=== PATIENT | male | born 1940 | race African-American/Black ===

== ENCOUNTER 2019-08-04 09:41 | Emergency (ER) | payer MEDICARE, MEDICAID ==
[~2019-08-04] VITALS: Ht 177.8 cm; Wt 75.0 kg
[2019-08-04] MEDS ORDERED: SODIUM CHLORIDE 0.9% 500 ML IV ONE (09:48)
[2019-08-04 10:10] VITALS: BP 103/58
== END 2019-08-04 10:20 | disposition left against medical advice (07) ==
LOC: ER 10:18
DX: R41.82 Altered mental status, unspecified (principal); I10 Essential (primary) hypertension; I25.10 Atherosclerotic heart disease of native coronary artery without angina pectoris; E78.00 Pure hypercholesterolemia, unspecified
CPT/HCPCS: 93005; 99284; J7040

== ENCOUNTER 2019-11-03 11:47 | Inpatient (IN) | payer MEDICARE, MEDICAID ==
[~2019-11-03] VITALS: Ht 172.7 cm; Wt 75.9 kg
[2019-11-03 13:13] LABS: HEMATOCRIT. 26.8 % (42.0-52.0); HEMOGLOBIN. 8.8 g/dL (14.0-18.0); MEAN CORPUSCULAR HEMOGLOBIN 27.5 pg (28.0-32.0); MEAN CORPUSCULAR VOLUME 84.3 fL (80.0-94.0); MEAN PLATELET VOLUME 8.3 fl (7.4-10.4); PLATELET 152 x1000/uL (130-400); RED BLOOD CELL COUNT 3.18 mill/uL (4.7-6.1); RED CELL DISTRIBUTION WIDTH 12.9 % (11.6-14.6)
[2019-11-03 13:21] LABS: CHLORIDE 108 mEq/L (98-107)
[2019-11-03 13:52] LABS: PLATELET ESTIMATE NORMAL
[2019-11-03] MEDS ORDERED: ENOXAPARIN 40MG/0.4ML SYR SUBCUT SCH (20:45)
[2019-11-03] MEDS ORDERED: ONDANSETRON HCL 4MG/2ML INJ IV PRN (20:45)
[2019-11-03] MEDS ORDERED: ACETAMINOPHEN 325MG TABLET PO PRN (20:45)
[2019-11-03] MEDS ORDERED: MORPHINE SULFATE 2 MG/ML CPJ (NOT FOR IM USE) IV PRN (20:45)
[2019-11-03] MEDS ORDERED: DIPHENHYDRAMINE 50MG/ML VIAL IV PRN (20:45)
[2019-11-03] MEDS ORDERED: HYDRALAZINE 20MG/ML VIAL IV PRN (20:45)
[2019-11-03] MEDS ORDERED: IPRATROPIUM/ALBUTEROL 0.5-3(2.5)MG/3ML NEB HHN PRN (20:45)
[2019-11-03] MEDS ORDERED: DOCUSATE SODIUM 100MG CAPSULE PO PRN (20:45)
[2019-11-03] MEDS ORDERED: GUAIFENESIN 200MG/10ML SUGAR FREE UDC PO PRN (20:45)
[2019-11-03] MEDS ORDERED: CLONIDINE 0.1MG TABLET PO PRN (20:45)
[2019-11-03] MEDS ORDERED: HYDROCODONE/ACETAMINOPHEN 10/325MG TABLET PO PRN (20:45)
[2019-11-03] MEDS ORDERED: MAGNESIUM/ALUMINUM HYDROXIDE/SIMETHICONE 30ML UDC PO PRN (20:45)
[2019-11-03] MEDS ORDERED: LORAZEPAM 2MG/ML CPJ IV PRN (20:45)
[2019-11-03 21:26] LABS: CLARITY URINE CLEAR (CLEAR); COLOR URINE YELLOW (YELLOW); KETONES URINE NEGATIVE (NEGATIVE); LEUKOCYTE ESTERASE URINE NEGATIVE (NEGATIVE); NITRITE URINE NEGATIVE (NEGATIVE); OCCULT BLOOD URINE NEGATIVE (NEGATIVE); PH URINE 5.5 (4.5-8.0); PROTEIN URINE NEGATIVE (NEGATIVE); SPECIFIC GRAVITY URINE 1.011 (1.005-1.030); UROBILINOGEN URINE 0.2 E.U./dL (0.2-1.0)
[2019-11-03 21:41] LABS: *AMPHETAMINES SCREEN URINE NEGATIVE (NEGATIVE); *BARBITURATES SCREEN URINE NEGATIVE (NEGATIVE); *BENZODIAZEPINES SCREEN URINE NEGATIVE (NEGATIVE); *COCAINE SCREEN URINE NEGATIVE (NEGATIVE); METHADONE URINE SCREEN NEGATIVE (NEGATIVE); OPIATES URINE SCREEN NEGATIVE (NEGATIVE); PHENCYCLIDINE URINE SCREEN NEGATIVE (NEGATIVE)
[2019-11-03 21:42] LABS: CANNABINOID URINE SCREEN NEGATIVE (NEGATIVE)
[2019-11-03 22:00] VITALS: BP_SYST 117; BP_DIAS 23; BP_DIAS 53
[2019-11-03] MEDS: SODIUM CHLORIDE 0.9% INJ 3ML FLUSH IVF SCH (22:29)
[2019-11-04] VITALS: BP 124/46
[2019-11-04 04:00] VITALS: BP 115/36
[2019-11-04 06:13] LABS: CHLORIDE 108 mEq/L (98-107)
[2019-11-04] MEDS: SODIUM CHLORIDE 0.9% INJ 3ML FLUSH IVF SCH (06:21)
[2019-11-04 06:27] LABS: HEMATOCRIT. 28.5 % (42.0-52.0); HEMOGLOBIN. 9.3 g/dL (14.0-18.0); MEAN CORPUSCULAR HEMOGLOBIN 27.5 pg (28.0-32.0); MEAN CORPUSCULAR VOLUME 83.8 fL (80.0-94.0); MEAN PLATELET VOLUME 9.5 fl (7.4-10.4); PLATELET 148 x1000/uL (130-400); RED CELL DISTRIBUTION WIDTH 12.9 % (11.6-14.6)
[2019-11-04 08:00] VITALS: BP 94/55
[2019-11-04 13:11] LABS: PLATELET ESTIMATE NORMAL
[2019-11-04] MEDS ORDERED: ENOXAPARIN 30MG/0.3ML SYR SUBCUT SCH (21:00)
== END 2019-11-04 10:03 | disposition left against medical advice (07) | DRG 73 ==
LOC: ER 11:47 → 5WST 17:05 → EDBEDREQ 17:07 → ENRESERV 20:06
PROVIDERS: ADMIT Internal Medicine; ATTEND Internal Medicine
DX: G90.8 Other disorders of autonomic nervous system (principal); N17.0 Acute kidney failure with tubular necrosis; J98.11 Atelectasis; Z53.29 Procedure and treatment not carried out because of patient's decision for other reasons; I25.10 Atherosclerotic heart disease of native coronary artery without angina pectoris; I10 Essential (primary) hypertension; E78.5 Hyperlipidemia, unspecified; E78.00 Pure hypercholesterolemia, unspecified; I95.9 Hypotension, unspecified; D72.819 Decreased white blood cell count, unspecified; D64.9 Anemia, unspecified; R79.89 Other specified abnormal findings of blood chemistry; S09.90XA Unspecified injury of head, initial encounter; X58.XXXA Exposure to other specified factors, initial encounter; E86.0 Dehydration; Z86.73 Personal history of transient ischemic attack (TIA), and cerebral infarction without residual deficits; Y93.89 Activity, other specified; Y92.89 Other specified places as the place of occurrence of the external cause; Y99.8 Other external cause status
CPT/HCPCS: 36415; 71045; 80053; 80305; 81003; 83880; 84484; 85025; 93005; 93970; 99285

== ENCOUNTER 2024-08-14 20:50 | Emergency (ER) | payer MEDICARE, MEDICAID ==
[~2024-08-14 20:50] MED LIST: ASPI-1406 MT; AZIT250T12 MT; BICA50TA7 PO; BRIM.2 EACHEYE; FAMO20TA8 MT; FERR-63 PO; LATA2.5D14 EACHEYE; MONT-39 PO; POLY17PO3 MT; SENN-362 PO; SIMV-43 PO; SULF1TAB47 MT; TAMS-54 MT
== END 2024-08-14 21:21 | disposition left against medical advice (07) ==
LOC: ER 20:50
DX: R68.89 Other general symptoms and signs (principal); Z53.21 Procedure and treatment not carried out due to patient leaving prior to being seen by health care provider

== ENCOUNTER 2024-08-23 14:06 | Inpatient (IN) | payer MEDICARE, MEDICAID ==
[2024-08-23] VITALS (15 sets, daily range): BP systolic 90–118; BP diastolic 50–62; PULSE 60–94; RESP 12–19; TEMP 34.6–37.2; O2SAT 96–100
[~2024-08-23] VITALS: Ht 167.6 cm; Wt 64.9 kg
[~2024-08-23 14:06] MED LIST changes: -AZIT250T12 MT
[2024-08-23] MEDS: NOREPINEPHRINE 8MG/250ML PMX 250 ML IV STA (14:10)
[2024-08-23] MEDS ORDERED: PIPERACILLIN/TAZO 3.375G/100ML 100 ML IV ONE (14:15)
[2024-08-23] MEDS: SODIUM CHLORIDE 0.9% 1,000 ML IV ONE ×2 (14:39→19:49)
[2024-08-23] MEDS: PIPERACILLIN/TAZO 3.375G/50ML 50 ML IV NR (15:22)
[2024-08-23] MEDS: SODIUM CHLORIDE 0.9% (SEPSIS BOLUS) IV ONE (15:23)
[2024-08-23 15:26] LABS: BASOPHILS % 0.8 % (0.0-2.0); EOSINOPHILS % 0.6 % (0.0-5.0); HEMATOCRIT. 22.2 % (42.0-52.0); HEMOGLOBIN. 7.1 g/dL (14.0-18.0); LYMPHOCYTES % 19.7 % (20.0-50.0); MEAN CORPUSCULAR HEMOGLOBIN 25.9 pg (28.0-32.0); MEAN CORPUSCULAR HGB CONC 31.8 g/dL (31.0-37.0); MEAN CORPUSCULAR VOLUME 81.5 fL (80.0-94.0); MONOCYTES % 10.8 % (2.0-8.0); NEUTROPHILS % 68.1 % (40.0-76.0); PLATELET 136 x1000/uL (130-400); PROTHROMBIN TIME 10.7 sec (9.6-11.0); RED BLOOD CELL COUNT 2.73 mill/uL (4.7-6.1); RED CELL DISTRIBUTION WIDTH 16.1 % (11.6-14.6); WHITE BLOOD COUNT 2.5 x1000/uL (4.5-11.0)
[2024-08-23 15:27] LABS: CHLORIDE 108 mEq/L (98-107); POTASSIUM 4.1 mEq/L (3.5-5.1); SODIUM 138 mEq/L (136-145)
[2024-08-23 15:28] LABS: CALCIUM 7.8 mg/dL (8.7-10.4); CARBON DIOXIDE 22 mEq/L (21-32)
[2024-08-23 15:33] LABS: GLUCOSE 71 mg/dL (70-105); UREA NITROGEN BLOOD 76 mg/dL (9-23)
[2024-08-23 15:35] LABS: ALANINE AMINOTRANSFERASE 61 IU/L (10-49); ALBUMIN 3.1 g/dL (3.2-4.8); ASPARTATE AMINOTRANSFERASE 67 IU/L (<34); BILIRUBIN DIRECT < 0.1 mg/dL (<=3.0)
[2024-08-23 15:36] LABS: BILIRUBIN TOTAL 0.2 mg/dL (0.1-1.0); PROTEIN TOTAL 5.7 g/dL (6.0-8.3)
[2024-08-23 15:37] LABS: CREATININE 3.1 mg/dL (0.6-1.3)
[2024-08-23 15:39] LABS: TROPONIN I HIGH SENSITIVITY 119 ng/L (3.0-53)
[2024-08-23] MEDS: NOREPINEPHRINE 8MG/250ML PMX 250 ML IV ONE (15:43)
[2024-08-23] MEDS: ASPIRIN 325MG EC TABLET PO ONE (16:46)
[2024-08-23] MEDS: CLOPIDOGREL 75MG TABLET PO ONE (16:46)
[2024-08-23] MEDS ORDERED: CLONIDINE 0.1MG TABLET PO PRN (18:15)
[2024-08-23] MEDS ORDERED: DIPHENHYDRAMINE 50MG/ML VIAL IV PRN (18:15)
[2024-08-23] MEDS ORDERED: MAGNESIUM/ALUMINUM HYDROXIDE/SIMETHICONE 30ML UDC PO PRN (18:15)
[2024-08-23] MEDS ORDERED: IPRATROPIUM/ALBUTEROL 0.5-3(2.5)MG/3ML NEB HHN PRN (18:15)
[2024-08-23] MEDS ORDERED: ACETAMINOPHEN 325MG TABLET PO PRN ×2 (18:15)
[2024-08-23] MEDS ORDERED: ONDANSETRON HCL 4MG/2ML INJ IV PRN (18:15)
[2024-08-23] MEDS ORDERED: DOCUSATE SODIUM 100MG CAPSULE PO PRN (18:15)
[2024-08-23] MEDS: VANCOMYCIN 1G PREMIX 200 ML IV NR (19:49)
[2024-08-23 21:28] LABS: TROPONIN I HIGH SENSITIVITY 125 ng/L (3.0-53)
[2024-08-23] MEDS: ATORVASTATIN CALCIUM 40MG TABLET PO SCH (22:41)
[2024-08-23] MEDS: PANTOPRAZOLE SODIUM 40 MG/VIAL IV SCH (22:41)
[2024-08-24] VITALS (79 sets, daily range): BP systolic 77–136; BP diastolic 42–111; PULSE 60–103; RESP 10–18; TEMP 35.9–37.2; O2SAT 94–100
[2024-08-24 01:29] LABS: CREATINE KINASE MB FRACTION 9.1 ng/mL (0.5-3.6)
[2024-08-24 05:21] LABS: HEMATOCRIT. 22.6 % (42.0-52.0); HEMOGLOBIN. 7.3 g/dL (14.0-18.0); MEAN CORPUSCULAR HEMOGLOBIN 26.4 pg (28.0-32.0); MEAN CORPUSCULAR HGB CONC 32.2 g/dL (31.0-37.0); MEAN CORPUSCULAR VOLUME 82.2 fL (80.0-94.0); MEAN PLATELET VOLUME 9.1 fl (7.4-10.4); PLATELET 150 x1000/uL (130-400); RED BLOOD CELL COUNT 2.75 mill/uL (4.7-6.1); RED CELL DISTRIBUTION WIDTH 16.2 % (11.6-14.6); WHITE BLOOD COUNT 3.1 x1000/uL (4.5-11.0)
[2024-08-24 05:26] LABS: POTASSIUM 4.5 mEq/L (3.5-5.1)
[2024-08-24 05:32] LABS: CREATININE 2.9 mg/dL (0.6-1.3)
[2024-08-24 05:33] LABS: CREATINE KINASE MB FRACTION 7.8 ng/mL (0.5-3.6)
[2024-08-24 05:38] LABS: DIFFERENTIAL COMMENT 1
[2024-08-24] MEDS: PIPERACILLIN/TAZO 3.375G/50ML 50 ML IV SCH (06:20)
[2024-08-24] MEDS: BICALUTAMIDE 50 MG TABLET PO SCH (08:56)
[2024-08-24] MEDS: ASPIRIN 81MG EC TABLET PO SCH (08:56)
[2024-08-24] MEDS ORDERED: ENOXAPARIN 30MG/0.3ML SYR SUBCUT SCH (09:00)
[2024-08-24 09:02] LABS: PLATELET ESTIMATE NORMAL
[2024-08-24 09:03] LABS: HYPOCHROMASIA 1+
[2024-08-24 13:38] LABS: CREATINE KINASE MB FRACTION 6.3 ng/mL (0.5-3.6)
[2024-08-24] MEDS: SODIUM CHLORIDE 0.45% 1,000 ML IV ONE (15:56)
[2024-08-24] MEDS ORDERED: MIDODRINE HCL 5MG TABLET PO PRN (17:15)
[2024-08-24] MEDS: GUAIFENESIN 200MG/10ML SUGAR FREE UDC PO PRN (17:56)
[2024-08-25] VITALS (28 sets, daily range): BP systolic 86–141; BP diastolic 63–109; PULSE 59–114; RESP 11–21; TEMP 36.3–36.7; O2SAT 96–100
[2024-08-25] MEDS: SODIUM CHLORIDE 0.9% 1,000 ML IV ONE (00:28)
[2024-08-25 06:26] LABS: BASOPHILS % 0.5 % (0.0-2.0); EOSINOPHILS % 2.2 % (0.0-5.0); HEMATOCRIT. 23.2 % (42.0-52.0); HEMOGLOBIN. 7.3 g/dL (14.0-18.0); LYMPHOCYTES % 18.7 % (20.0-50.0); MEAN CORPUSCULAR HEMOGLOBIN 26.3 pg (28.0-32.0); MEAN CORPUSCULAR HGB CONC 31.4 g/dL (31.0-37.0); MEAN CORPUSCULAR VOLUME 83.6 fL (80.0-94.0); MEAN PLATELET VOLUME 9.2 fl (7.4-10.4); MONOCYTES % 10.8 % (2.0-8.0); NEUTROPHILS % 67.8 % (40.0-76.0); PLATELET 144 x1000/uL (130-400); RED BLOOD CELL COUNT 2.77 mill/uL (4.7-6.1); RED CELL DISTRIBUTION WIDTH 16.7 % (11.6-14.6); WHITE BLOOD COUNT 2.9 x1000/uL (4.5-11.0)
[2024-08-25 06:40] LABS: PARTIAL THROMBOPLASTIN TIME 37.4 sec (23.4-31.0); PROTHROMBIN TIME 10.6 sec (9.6-11.0)
[2024-08-25 06:57] LABS: CHLORIDE 110 mEq/L (98-107); POTASSIUM 5.1 mEq/L (3.5-5.1); SODIUM 139 mEq/L (136-145)
[2024-08-25 06:58] LABS: CARBON DIOXIDE 22 mEq/L (21-32)
[2024-08-25 06:59] LABS: CALCIUM 8.2 mg/dL (8.7-10.4)
[2024-08-25 07:02] LABS: FOLIC ACID (FOLATE) SERUM 8.54 ng/mL (>5.38)
[2024-08-25 07:03] LABS: CREATININE 2.7 mg/dL (0.6-1.3); GLUCOSE 89 mg/dL (70-105)
[2024-08-25 07:04] LABS: UREA NITROGEN BLOOD 57 mg/dL (9-23)
[2024-08-25 07:06] LABS: PHOSPHORUS 3.3 mg/dL (2.5-4.9)
[2024-08-25] MEDS: FERROUS SULFATE 325MG TABLET PO SCH (08:30)
[2024-08-25 13:34] LABS: CLARITY URINE CLEAR (CLEAR); COLOR URINE YELLOW (YELLOW); GLUCOSE URINE NEGATIVE (NEGATIVE); KETONES URINE NEGATIVE (NEGATIVE); LEUKOCYTE ESTERASE URINE NEGATIVE (NEGATIVE); NITRITE URINE NEGATIVE (NEGATIVE); OCCULT BLOOD URINE NEGATIVE (NEGATIVE); PROTEIN URINE NEGATIVE (NEGATIVE); SPECIFIC GRAVITY URINE 1.012 (1.005-1.030); UROBILINOGEN URINE 0.2 E.U./dL (0.2-1.0)
[2024-08-25] MEDS ORDERED: LEVO-65 MT (13:50)
[2024-08-25] MEDS: BRIMONIDINE 0.2% OPHTH DROPS 5ML BOTHEYE SCH (14:03)
[2024-08-25 14:10] LABS: CREATININE URINE RANDOM 30.5 mg/dL
[2024-08-25] MEDS: VANCOMYCIN 750MG/150ML (BAXTER) IV SCH (14:53)
== END 2024-08-25 18:41 | disposition home health service (06) | DRG 871 ==
LOC: ER 14:06 → EDBEDREQ 16:09 → CVICU 20:08 → 8WST 08-25 12:26
PROVIDERS: ADMIT Internal Medicine; ATTEND Internal Medicine
DX: A41.9 Sepsis, unspecified organism (principal); I21.A1 Myocardial infarction type 2; R65.21 Severe sepsis with septic shock; N17.9 Acute kidney failure, unspecified; I25.10 Atherosclerotic heart disease of native coronary artery without angina pectoris; D63.8 Anemia in other chronic diseases classified elsewhere; E86.0 Dehydration; T50.995A Adverse effect of other drugs, medicaments and biological substances, initial encounter; F03.90 Unspecified dementia, unspecified severity, without behavioral disturbance, psychotic disturbance, mood disturbance, and anxiety; I50.9 Heart failure, unspecified; Z85.118 Personal history of other malignant neoplasm of bronchus and lung; Z95.0 Presence of cardiac pacemaker; Z86.73 Personal history of transient ischemic attack (TIA), and cerebral infarction without residual deficits; Z85.46 Personal history of malignant neoplasm of prostate; Y92.89 Other specified places as the place of occurrence of the external cause
CPT/HCPCS: 36415; 71045; 80048; 80051; 80061; 80076; 80202; 81003; 82550; 82553; 82570; 82746; 83605; 83735; 83880; 84100; 84145; 84156; 84484; 85025; 93005; 99291; J2470; J2543; J3370; J3490; J7030

== ENCOUNTER 2024-11-20 20:13 | Inpatient (IN) | payer MEDICARE, MEDICAID ==
[~2024-11-20] VITALS: Ht 165.1 cm; Wt 71.2 kg
[~2024-11-20 20:13] MED LIST changes: +LEVO-65 MT
[2024-11-20 20:26] VITALS: O2SAT 99
[2024-11-20] MEDS ORDERED: SODIUM CHLORIDE 0.9% (SEPSIS BOLUS) IV ONE (21:15)
[2024-11-20 21:50] LABS: BASOPHILS % 0.9 % (0.0-2.0); EOSINOPHILS % 0.9 % (0.0-5.0); LYMPHOCYTES % 26.4 % (20.0-50.0); MEAN PLATELET VOLUME 9.3 fl (7.4-10.4); MONOCYTES % 11.9 % (2.0-8.0); NEUTROPHILS % 59.9 % (40.0-76.0); PLATELET 146 x1000/uL (130-400); RED BLOOD CELL COUNT 2.32 mill/uL (4.7-6.1); RED CELL DISTRIBUTION WIDTH 16.2 % (11.6-14.6)
[2024-11-20 22:01] LABS: INR 1.0
[2024-11-20] MEDS: PIPERACILLIN/TAZO 3.375G/50ML 50 ML IV ONE (22:04)
[2024-11-20] MEDS: VANCOMYCIN 1G PREMIX 200 ML IV ONE (22:22)
[2024-11-20 22:26] LABS: ASPARTATE AMINOTRANSFERASE 36 IU/L (<34)
[2024-11-20 22:27] LABS: BILIRUBIN DIRECT < 0.1 mg/dL (<=3.0); BILIRUBIN TOTAL 0.3 mg/dL (0.1-1.0); PROTEIN TOTAL 6.6 g/dL (6.0-8.3)
[2024-11-20 22:30] LABS: HEMATOCRIT. 19.3 % (42.0-52.0); HEMOGLOBIN. 6.3 g/dL (14.0-18.0)
[2024-11-20 22:36] LABS: CREATININE 3.7 mg/dL (0.6-1.3)
[2024-11-20 22:37] LABS: TROPONIN I HIGH SENSITIVITY 97 ng/L (3.0-53)
[2024-11-20 22:38] LABS: UREA NITROGEN BLOOD 113 mg/dL (9-23)
[2024-11-20 23:35] LABS: CLARITY URINE CLOUDY (CLEAR); COLOR URINE YELLOW (YELLOW); GLUCOSE URINE NEGATIVE (NEGATIVE); KETONES URINE NEGATIVE (NEGATIVE); LEUKOCYTE ESTERASE URINE 3+ (NEGATIVE); NITRITE URINE NEGATIVE (NEGATIVE); OCCULT BLOOD URINE NEGATIVE (NEGATIVE); PH URINE 5.5 (4.5-8.0); PROTEIN URINE NEGATIVE (NEGATIVE); SPECIFIC GRAVITY URINE 1.011 (1.005-1.030); UROBILINOGEN URINE 0.2 E.U./dL (0.2-1.0)
[2024-11-20] MEDS: SODIUM CHLORIDE 0.9% 1,000 ML IV ONE (23:37)
[2024-11-21 00:20] LABS: BACTERIA URINE 3+; RBC URINE 0-2 /hpf (0-2); SQUAMOUS EPITHELIAL CELL URINE FEW /lpf (RARE/1+); WBC URINE 25-50 /hpf (0-2)
[2024-11-21] MEDS: ASPIRIN 81MG TABLET PO ONE (00:55)
[2024-11-21] MEDS ORDERED: ACETAMINOPHEN 325MG TABLET PO PRN (01:45)
[2024-11-21] MEDS ORDERED: HYDROCODONE/ACETAMINOPHEN 5/325MG TABLET PO PRN (01:45)
[2024-11-21] MEDS ORDERED: MORPHINE SULFATE 2 MG/ML INJ (NOT FOR IM USE) IV PRN (01:45)
[2024-11-21] MEDS ORDERED: MAGNESIUM/ALUMINUM HYDROXIDE/SIMETHICONE 30ML UDC PO PRN (01:45)
[2024-11-21] MEDS ORDERED: CLONIDINE 0.1MG TABLET PO PRN (01:45)
[2024-11-21] MEDS ORDERED: ONDANSETRON HCL 4MG/2ML INJ IV PRN (01:45)
[2024-11-21] MEDS ORDERED: ZOLPIDEM TARTRATE 5MG TABLET PO PRN (01:45)
[2024-11-21] MEDS: SODIUM CHLORIDE 0.9% 1,000 ML IV SCH (02:18)
[2024-11-21 02:31] LABS: CREATININE 3.2 mg/dL (0.6-1.3); UREA NITROGEN BLOOD 100 mg/dL (9-23)
[2024-11-21 02:33] LABS: PHOSPHORUS 3.7 mg/dL (2.5-4.9)
[2024-11-21 02:51] LABS: TROPONIN I HIGH SENSITIVITY 100 ng/L (3.0-53)
[2024-11-21 05:00] VITALS: BP 120/64; PULSE 60; RESP 18; TEMP 33.1; O2SAT 100
[2024-11-21 06:24] VITALS: BP 120/64; PULSE 60; RESP 18; TEMP 33.1376
[2024-11-21 08:00] VITALS: BP 116/64; PULSE 60; RESP 18; TEMP 36.5; O2SAT 100
[2024-11-21] MEDS: PANTOPRAZOLE SODIUM 40 MG/VIAL IV SCH (08:38)
[2024-11-21] MEDS: PIPERACILLIN/TAZO 3.375G/50ML 50 ML IV SCH (08:38)
[2024-11-21 10:30] LABS: BASOPHILS % 0.5 % (0.0-2.0); EOSINOPHILS % 1.5 % (0.0-5.0); HEMATOCRIT. 23.2 % (42.0-52.0); HEMOGLOBIN. 7.5 g/dL (14.0-18.0); LYMPHOCYTES % 22.7 % (20.0-50.0); MEAN PLATELET VOLUME 9.1 fl (7.4-10.4); MONOCYTES % 13.4 % (2.0-8.0); NEUTROPHILS % 61.9 % (40.0-76.0); PLATELET 127 x1000/uL (130-400); RED BLOOD CELL COUNT 2.80 mill/uL (4.7-6.1); RED CELL DISTRIBUTION WIDTH 15.9 % (11.6-14.6)
[2024-11-21 11:18] LABS: TROPONIN I HIGH SENSITIVITY 110 ng/L (3.0-53)
[2024-11-21 12:00] VITALS: BP 102/50; PULSE 60; RESP 18; TEMP 36.4; O2SAT 98
[2024-11-21 16:00] VITALS: BP 138/69; PULSE 59; RESP 18; TEMP 36.6; O2SAT 98
[2024-11-21 16:19] LABS: TROPONIN I HIGH SENSITIVITY 113 ng/L (3.0-53)
[2024-11-21] MEDS: TAMSULOSIN HCL 0.4MG SR CAPSULE PO SCH (16:41)
[2024-11-21 17:37] LABS: GLUCOSE URINE NEGATIVE (NEGATIVE); KETONES URINE NEGATIVE (NEGATIVE); LEUKOCYTE ESTERASE URINE 3+ (NEGATIVE); NITRITE URINE NEGATIVE (NEGATIVE); OCCULT BLOOD URINE NEGATIVE (NEGATIVE); PH URINE 5.5 (4.5-8.0); PROTEIN URINE NEGATIVE (NEGATIVE); SPECIFIC GRAVITY URINE 1.011 (1.005-1.030); UROBILINOGEN URINE 0.2 E.U./dL (0.2-1.0)
[2024-11-21 17:51] LABS: *AMPHETAMINES SCREEN URINE NEGATIVE (NEGATIVE); *BARBITURATES SCREEN URINE NEGATIVE (NEGATIVE); *BENZODIAZEPINES SCREEN URINE NEGATIVE (NEGATIVE); *COCAINE SCREEN URINE NEGATIVE (NEGATIVE); CANNABINOID URINE SCREEN NEGATIVE (NEGATIVE); ECSTASY MDMA SCREEN URINE NEGATIVE (NEGATIVE); METHADONE URINE SCREEN NEGATIVE (NEGATIVE); OPIATES URINE SCREEN NEGATIVE (NEGATIVE); PHENCYCLIDINE URINE SCREEN NEGATIVE (NEGATIVE)
[2024-11-21 17:54] LABS: COLOR URINE STRAW (YELLOW)
[2024-11-21 17:56] LABS: CLARITY URINE SL HAZY (CLEAR)
[2024-11-21 17:57] LABS: BACTERIA URINE TRACE; RBC URINE NONE SEEN /hpf (0-2); SQUAMOUS EPITHELIAL CELL URINE NONE SEEN /lpf (RARE/1+); WBC URINE 50-100 /hpf (0-2)
[2024-11-21 18:01] LABS: SODIUM URINE RANDOM 71.0 mEq/L
[2024-11-21 18:08] LABS: CREATININE URINE RANDOM 27.8 mg/dL; UREA NITROGEN URINE RANDOM 476.0 mg/dL
[2024-11-21 18:09] LABS: OSMOLALITY URINE 350.0 mOsm/kg (500-850)
[2024-11-21 20:00] VITALS: BP 100/60; PULSE 58; RESP 18; TEMP 36.1; O2SAT 96
[2024-11-22] VITALS: BP 112/60; PULSE 60; RESP 18; TEMP 36.2; O2SAT 97
[2024-11-22 04:00] VITALS: BP 125/68; PULSE 60; RESP 18; TEMP 36.1; O2SAT 97
[2024-11-22 07:13] LABS: BASOPHILS % 0.5 % (0.0-2.0); CREATININE 3.2 mg/dL (0.6-1.3); EOSINOPHILS % 1.9 % (0.0-5.0); HEMATOCRIT. 23.8 % (42.0-52.0); HEMOGLOBIN. 7.8 g/dL (14.0-18.0); LYMPHOCYTES % 19.2 % (20.0-50.0); MEAN PLATELET VOLUME 9.1 fl (7.4-10.4); MONOCYTES % 14.2 % (2.0-8.0); NEUTROPHILS % 64.2 % (40.0-76.0); PLATELET 131 x1000/uL (130-400); RED BLOOD CELL COUNT 2.86 mill/uL (4.7-6.1); RED CELL DISTRIBUTION WIDTH 16.2 % (11.6-14.6)
[2024-11-22 07:15] LABS: PHOSPHORUS 4.3 mg/dL (2.5-4.9)
[2024-11-22 07:18] LABS: FOLIC ACID (FOLATE) SERUM 9.22 ng/mL (>5.38)
[2024-11-22 07:56] LABS: UREA NITROGEN BLOOD 102 mg/dL (9-23)
[2024-11-22 07:57] LABS: VITAMIN B12 SERUM > 2000 pg/mL (211-911)
[2024-11-22 08:00] VITALS: BP 130/64; PULSE 64; RESP 19; TEMP 36.7; O2SAT 99
[2024-11-22] MEDS: FAMOTIDINE 20MG/2ML VIAL IV SCH (08:35)
[2024-11-22 10:07] LABS: CREATININE 3.1 mg/dL (0.6-1.3)
[2024-11-22 10:08] LABS: UREA NITROGEN BLOOD 100.0 mg/dL (9-23)
[2024-11-22 12:00] VITALS: BP 115/60; PULSE 64; RESP 64; TEMP 36.6; O2SAT 18
[2024-11-22 16:00] VITALS: BP 117/60; PULSE 60; RESP 62; TEMP 36.7; O2SAT 98
[2024-11-22 20:00] VITALS: BP 134/56; PULSE 59; RESP 20; TEMP 36.3; O2SAT 98
[2024-11-23] VITALS: BP 118/64; PULSE 59; RESP 18; TEMP 36.6; O2SAT 98
[2024-11-23 04:00] VITALS: BP 125/60; PULSE 60; RESP 18; TEMP 36.5; O2SAT 97
[2024-11-23 07:19] LABS: CREATININE 3.1 mg/dL (0.6-1.3); UREA NITROGEN BLOOD 96.0 mg/dL (9-23)
[2024-11-23 07:26] LABS: BASOPHILS % 0.1 % (0.0-2.0); EOSINOPHILS % 1.4 % (0.0-5.0); HEMATOCRIT. 22.3 % (42.0-52.0); HEMOGLOBIN. 7.3 g/dL (14.0-18.0); LYMPHOCYTES % 16.0 % (20.0-50.0); MEAN PLATELET VOLUME 9.0 fl (7.4-10.4); MONOCYTES % 10.9 % (2.0-8.0); NEUTROPHILS % 71.6 % (40.0-76.0); PLATELET 115 x1000/uL (130-400); RED BLOOD CELL COUNT 2.67 mill/uL (4.7-6.1); RED CELL DISTRIBUTION WIDTH 15.8 % (11.6-14.6)
[2024-11-23 08:00] VITALS: BP 124/65; PULSE 60; RESP 18; TEMP 36.5; O2SAT 100
[2024-11-23] MEDS: DOCUSATE SODIUM 100MG CAPSULE PO SCH (08:39)
[2024-11-23 10:08] LABS: ALPHA FETOPROTEIN TUMOR MARKER 20.5 ng/mL (0.0-6.4); CA 19-9 < 2 U/mL (0-35); CARCINOEMBRYONIC AG - SEND OUT 4.9 ng/mL (0.0-4.7)
[2024-11-23 12:00] VITALS: BP 113/54; PULSE 67; RESP 18; TEMP 36.6; O2SAT 97
[2024-11-23] MEDS: SODIUM ZIRCONIUM CYCLOSILICATE 10GM/PACKET PO NR (13:11)
[2024-11-23 13:12] LABS: PROSTATE SPECIFIC AG TOTAL 1.0 ng/mL (0.0-4.0)
[2024-11-23 16:00] VITALS: BP 117/69; PULSE 61; RESP 18; TEMP 36.7; O2SAT 100
[2024-11-23 20:00] VITALS: BP 140/75; PULSE 60; RESP 17; TEMP 36.4; O2SAT 97
[2024-11-23] MEDS: SENNOSIDES 8.6MG TABLET PO SCH (22:21)
[2024-11-24] VITALS: BP 110/68; PULSE 64; RESP 17; TEMP 36.5; O2SAT 99
[2024-11-24 04:00] VITALS: BP 143/75; PULSE 61; RESP 18; TEMP 36.6; O2SAT 99
[2024-11-24 06:09] LABS: BASOPHILS % 0.8 % (0.0-2.0); EOSINOPHILS % 1.4 % (0.0-5.0); HEMATOCRIT. 23.9 % (42.0-52.0); HEMOGLOBIN. 7.5 g/dL (14.0-18.0); LYMPHOCYTES % 27.9 % (20.0-50.0); MEAN PLATELET VOLUME 8.9 fl (7.4-10.4); MONOCYTES % 13.8 % (2.0-8.0); NEUTROPHILS % 56.1 % (40.0-76.0); PLATELET 123 x1000/uL (130-400); RED BLOOD CELL COUNT 2.86 mill/uL (4.7-6.1); RED CELL DISTRIBUTION WIDTH 16.6 % (11.6-14.6)
[2024-11-24 06:25] LABS: CREATININE 3.1 mg/dL (0.6-1.3)
[2024-11-24 06:27] LABS: UREA NITROGEN BLOOD 87.0 mg/dL (9-23)
[2024-11-24 08:00] VITALS: BP 130/70; PULSE 63; RESP 18; TEMP 36.7; O2SAT 98
[2024-11-24] MEDS: DEXTROSE 5% WATER 1,000 ML IV SCH (10:09)
[2024-11-24 12:00] VITALS: BP 132/68; PULSE 60; RESP 18; TEMP 36.9; O2SAT 97
[2024-11-24] MEDS ORDERED: NALOXONE HCL 0.4MG/ML VIAL IV PRN (12:15)
[2024-11-24] MEDS: SODIUM ZIRCONIUM CYCLOSILICATE 10GM/PACKET PO NR (13:12)
[2024-11-24 16:00] VITALS: BP 111/59; PULSE 60; RESP 18; TEMP 36.7; O2SAT 100
[2024-11-24] MEDS: MEROPENEM 500MG/50ML 50 ML IV SCH (16:51)
[2024-11-24 18:30] VITALS: BP 111/59; PULSE 60; RESP 18; TEMP 98
[2024-11-24] MEDS ORDERED: NEOMY SULF/BACITRAC ZN/POLY OINT 28GM TOP SCH (21:00)
[2024-11-26] MEDS ORDERED: FURO40TA5 PO (15:01)
== END 2024-11-24 19:05 | DRG 91 ==
LOC: ER 20:13 → 8WST 11-21 01:18 → EDBEDREQDT 11-21 01:29 → EDBEDREQTM 11-21 01:29 → EDBEDREQ 11-21 01:29 → ENRESERV 11-21 02:02
PROVIDERS: ADMIT Internal Medicine; ATTEND Internal Medicine
PROC: 30233N1 Transfusion of Nonautologous Red Blood Cells into Peripheral Vein, Percutaneous Approach (ICD-10-PCS; principal; 2024-11-21)
DX: G92.8 Other toxic encephalopathy (principal); G82.50 Quadriplegia, unspecified; N17.0 Acute kidney failure with tubular necrosis; I21.A1 Myocardial infarction type 2; K75.0 Abscess of liver; C79.82 Secondary malignant neoplasm of genital organs; N39.0 Urinary tract infection, site not specified; D61.818 Other pancytopenia; I69.354 Hemiplegia and hemiparesis following cerebral infarction affecting left non-dominant side; N18.4 Chronic kidney disease, stage 4 (severe); N17.9 Acute kidney failure, unspecified; I13.0 Hypertensive heart and chronic kidney disease with heart failure and stage 1 through stage 4 chronic kidney disease, or unspecified chronic kidney disease; I50.32 Chronic diastolic (congestive) heart failure; C22.9 Malignant neoplasm of liver, not specified as primary or secondary; D64.9 Anemia, unspecified; E83.41 Hypermagnesemia; F03.90 Unspecified dementia, unspecified severity, without behavioral disturbance, psychotic disturbance, mood disturbance, and anxiety; I25.10 Atherosclerotic heart disease of native coronary artery without angina pectoris; K44.9 Diaphragmatic hernia without obstruction or gangrene; K40.90 Unilateral inguinal hernia, without obstruction or gangrene, not specified as recurrent; J45.909 Unspecified asthma, uncomplicated; E78.5 Hyperlipidemia, unspecified; K59.00 Constipation, unspecified; R13.10 Dysphagia, unspecified; S80.212A Abrasion, left knee, initial encounter; M75.02 Adhesive capsulitis of left shoulder; M75.01 Adhesive capsulitis of right shoulder; K76.89 Other specified diseases of liver; Z85.46 Personal history of malignant neoplasm of prostate; Z87.891 Personal history of nicotine dependence; Z95.5 Presence of coronary angioplasty implant and graft; Z90.49 Acquired absence of other specified parts of digestive tract; Z95.810 Presence of automatic (implantable) cardiac defibrillator; S80.811A Abrasion, right lower leg, initial encounter; X58.XXXA Exposure to other specified factors, initial encounter; Y93.89 Activity, other specified; Y92.89 Other specified places as the place of occurrence of the external cause; Y99.8 Other external cause status
CPT/HCPCS: 36415; 71045; 71250; 74176; 76770; 80048; 80076; 80305; 81003; 82105; 82270; 82378; 82570; 82607; 82728; 82746; 83540; 83550; 83605; 83735; 83930; 83935; 84100; 84145; 84153; 84300; 84443; 84484; 84540; 85025; 85044; 86301; 86850; 86900; 86920; 87077; 87186; 92610; 93005; 93970; 97162; 97166; 97530; 99291; A4606; J1308; J2185; J2470; J2543; J3373; J7030; J7070; P9016